=== PATIENT | male | born 1995 | race Two or more races ===

== ENCOUNTER 2020-10-20 12:29 | Emergency (ER) | payer SELFPAY ==
[~2020-10-20] VITALS: Ht 167.6 cm; Wt 77.1 kg
--- NOTE | 2020-10-20 12:40 | NUR ---
Place C collor per Dr Adriana ulrich.
--- NOTE | 2020-10-20 13:01 | NUR ---
PT out of ER for CT.
--- NOTE | 2020-10-20 13:25 | NUR ---
PT back form CT. Dr Wright removed C collor.
[2020-10-20] MEDS ORDERED: IBUPROFEN 600 MG TABLET PO ONE (13:45)
[2020-10-20] MEDS ORDERED: IBUPROFEN 600 MG TABLET ONE (13:54)
--- NOTE | 2020-10-20 14:20 | NUR ---
Patient discharged to home in stable condition. Written and verbal after care instructions given. Patient verbalizes understanding of instructions. Stressed follow up or return to ER for worsening s/s. Pt left ER w/ steady gait.
[2020-10-20 14:22] VITALS: BP 123/58
== END 2020-10-20 14:25 | disposition home or self-care (01) ==
LOC: ER 12:31
DX: S06.0X1A Concussion with loss of consciousness of 30 minutes or less, initial encounter (principal); S13.4XXA Sprain of ligaments of cervical spine, initial encounter; V49.69XA Unspecified car occupant injured in collision with other motor vehicles in traffic accident, initial encounter; Y92.411 Interstate highway as the place of occurrence of the external cause; R40.2412 Glasgow coma scale score 13-15, at arrival to emergency department
CPT/HCPCS: 70450; 72125; A4663